=== PATIENT | male | born 1970 | race African-American/Black ===

== ENCOUNTER 2018-01-07 10:51 | Emergency (ER) | payer OTHER ==
[~2018-01-07] VITALS: Ht 180.3 cm; Wt 124.7 kg
[~2018-01-07 10:51] MED LIST: EPIPEN 2-PAK1 MG/ML IM; FLEXERIL10 MG PO; IBUPROFEN800 M1 PO; MEDROL4 M2 PO; MOTRIN600 MG PO; PROCTOCREAM-HC2.5% TOP; ZITHROMAX250 M2 PO
[2018-01-07] MEDS ORDERED: PREDNISONE50 M1 PO (12:51)
--- NOTE | 2018-01-07 12:51 | ED GENERAL ADULT ---
History of Present Illness General Chief Complaint: Animal/Insect Bite Stated Complaint: BEE STING Source: patient Exam Limitations: no limitations Vital Signs & Intake/Output Vital Signs & Intake/Output Vital Signs Date Time Temp Pulse Resp B/P B/P Pulse O2 O2 Flow FiO2 Mean Ox Delivery Rate 01/07 1257 98.0 64 18 140/82 100 Room Air 01/07 1053 98.1 102 18 145/92 99 Room Air Room Air Allergies Coded Allergies: diphenhydramine (Severe, [place]STAGMUS 09/14/17) venom-honey bee (HIVES 09/14/17) Reconcile Medications Azithromycin (Zithromax) 250 MG TABLET 1 DP PO AD bronchtis 2 the first day followed by 1 for days 2-5 Epinephrine (Epipen 2-Gal) 0.3 MG/0.3 ML AUTO.INJCT 1 DOSE IM ONCE DAILY PRN BEE STING SWELLING Ibuprofen 800 MG TABLET 1 TAB PO TID pain Methylprednisolone. (Medrol) 4 MG TAB.DS.PK 1 DP PO AD rhinitis 6 on day 1 then reduce by one tablet daily until gone Prednisone 50 MG TABLET 1 TAB PO DAILY BEE STING ALLERGY Triage Note: PT TO ED S/P "STUNG BY BEE TO LEFT LEG, RIGHT ARM, LEFT RING FINGER, I HAVE AN EPIPEN BUT I DIDN'T TAKE, IT". DIDN'T TAKE BENEDRYL "I'M ALLERGIC TO BENDDRYL". Triage Nurses Notes Reviewed? yes Onset: Abrupt Duration: hour(s): (2), continues in ED Timing: remote history Injury Environment: home Severity: mild, moderate HPI: 47-year-old male history of bee sting allergies since her evaluation after bee sting. Patient reports she was stung by a bee into his right arm left finger and right leg about 2 hours prior to arrival. He reports a remote history of bee sting allergies. Denies any history of anaphylaxis. He states he has an EpiPen but did not use it. Did not take any medicines. Denies any swelling or lip swelling with no difficulty breathing or difficult swallowing. He does report some local pain swelling and redness in the area of the bee stings. (Mau Santana) Past History Travel History Traveled to [place] past 21 day No Medical History Any Pertinent Medical History? see below for history Neurological: NONE EENT: NONE Cardiovascular: NONE Respiratory: NONE Gastrointestinal: NONE Hepatic: NONE Renal: NONE Musculoskeletal: NONE Psychiatric: NONE Endocrine: NONE Blood Disorders: NONE Cancer(s): NONE ECOMMERCE MANAGER/Reproductive: NONE Surgical History Surgical History: non-contributory Psychosocial History What is your primary language [place] Islander Tobacco Use: Never used ETOH Use: denies use Illicit Drug Use: denies illicit drug use Family History Hx Contributory? No (Mau Santana) Review of Systems Review of Systems Constitutional: Reports: no symptoms. EENTM: Reports: no symptoms. Respiratory: Reports: no symptoms. Cardiovascular: Reports: no symptoms. GI: Reports: no symptoms. Genitourinary: Reports: no symptoms. Musculoskeletal: Reports: no symptoms. Skin: Reports: see HPI (bee sting). Neurological/Psychological: Reports: no symptoms. Hematologic/Endocrine: Reports: no symptoms. Immunologic/Allergic: Reports: no symptoms. All Other Systems: Reviewed and Negative (Mau Santana) Physical Exam Physical Exam General Appearance: well developed/nourished, no apparent distress, alert, awake , comfortable Head: atraumatic, normal appearance Eyes: Bilateral: normal appearance, EOMI. Ears, Nose, Throat: normal pharynx, normal ENT inspection, hearing grossly normal, no swelling of the lips tongue or throat no stridor Neck: normal inspection, supple, full range of motion Respiratory: normal breath sounds, chest non-tender, no respiratory distress, lungs clear Cardiovascular: regular rate/rhythm, normal peripheral pulses Peripheral Pulses: 2+ radial (R), 2+ radial (L) Gastrointestinal: soft, non-tender Back: normal inspection, normal range of motion, no vertebral tenderness Extremities: normal range of motion, there is an area of erythema and mild soft tissue swelling located in the right upper arm left fourth digit and right lower leg. No bee stingers in place. No focal fluctuant areas no discharge Neurologic/Psych: no motor/sensory deficits, awake, alert, oriented x 3, normal gait Skin: intact, normal color, warm/dry Lymphatic: no anterior cervical sofía Core Measures ACS in differential dx? No CVA/TIA Diagnosis: No Sepsis Present: No Sepsis Focused Exam Completed? No (Mau Santana) Progress Differential Diagnoses I considered the following diagnoses in my evaluation of the patient: [Bee sting , anaphylaxis, cellulitis] Plan of Care: Patient's after bee sting. He appears to have only local inflammation. No signs of anaphylaxis. Patient did not administered EpiPen. Patient was given Pepcid and prednisone and monitored for an additional 90 minutes without any evidence of swelling of the lips or throat. Patient appears to be in no acute distress. Discussed local treatment of bee stings. Discussed return precautions patient agrees the plan Initial ED EKG: none (Mau Santana) Departure Departure Disposition: HOME OR SELF CARE Condition: Stable Clinical Impression Primary Impression: Bee sting allergy Referrals: Patient Has No Primary Care Dr (PCP/Family) Additional Instructions: Take prednisone as directed for the full course. Tylenol or IBUProfen as needed for pain. Apply ice for 15-20 minutes every few hours. [place] for signs of infection like spreading redness worsening swelling worsening pain or any other concerns. Departure Forms: Customer Survey General Discharge Information Prescriptions: Current Visit Scripts Prednisone 1 TAB PO DAILY #5 TAB Epinephrine (Epipen 2-Gal) 1 DOSE IM ONCE DAILY PRN BEE STING SWELLING #1 DP (Mau Santana) PA/FLOOR INSPECTOR Co-Sign Statement Statement: ED Attending supervision documentation- [] I saw and evaluated the patient. I have also reviewed all the pertinent lab results and diagnostic results. I agree with the findings and the plan of care as documented in the PA's/FLOOR INSPECTOR's documentation. [X] I have reviewed the ED Record and agree with the PA's/FLOOR INSPECTOR's documentation. [] Additions or exceptions (if any) to the PAs/FLOOR INSPECTOR's note and plan are summarized below: [] (Gage Xiong DO) Critical Care Note Critical Care Note Critical Care Time: non-applicable (Mau Santana)
[2018-01-07 12:57] VITALS: BP 140/82
[2018-01-07] MEDS ORDERED: EPIPEN 2-P0.3 MG/0.3 IM (13:09)
== END 2018-01-07 13:12 ==
LOC: ERH 10:51
DX: T63.441A Toxic effect of venom of bees, accidental (unintentional), initial encounter (principal)